=== PATIENT | female | born 2000 | race Asian ===

== ENCOUNTER 2021-04-25 19:04 | Outpatient (REF) | payer OTHER, SELFPAY ==
[2021-04-25 19:35] LABS: COVID-19 Test Negative (Negative)
== END 2021-04-25 19:05 | disposition home or self-care (01) ==
LOC: HO.LAB 19:04
PROVIDERS: Visit Provider Internal Medicine
DX: Z20.822 Contact with and (suspected) exposure to COVID-19 (principal)
CPT/HCPCS: 36415; 87635

== ENCOUNTER 2021-08-02 14:10 | Outpatient (REF) | payer OTHER, SELFPAY ==
[2021-08-02 15:02] LABS: COVID-19 Test Positive (Negative); IDNOW Serial# 08D9AD1C
== END 2021-08-02 14:11 | disposition home or self-care (01) ==
LOC: HO.LAB 14:10
PROVIDERS: Visit Provider Internal Medicine
DX: Z20.822 Contact with and (suspected) exposure to COVID-19 (principal)
CPT/HCPCS: 36415; 87635